=== PATIENT | male | born 1970 | race Two or more races ===

== ENCOUNTER 2017-06-19 12:58 | Emergency (ER) | payer SELFPAY ==
[~2017-06-19] VITALS: Ht 177.8 cm; Wt 86.2 kg
[2017-06-19 13:21] VITALS: BP 119/70
== END 2017-06-19 13:40 | disposition home or self-care (01) ==
LOC: ER 13:01
DX: F51.02 Adjustment insomnia (principal); Z59.0 Homelessness; F11.10 Opioid abuse, uncomplicated
CPT/HCPCS: 99283; A4606; Z7610